=== PATIENT | female | born 1940 ===

== ENCOUNTER 2017-07-11 13:25 | Emergency (ER) | payer OTHER ==
[2017-07-11 13:25] VITALS: BMI 25.7
[2017-07-11 13:35] VITALS: RESP 20
--- NOTE | 2017-07-11 15:02 | C.PDOC ---
History Of Present Illness 76 y/o female c/o fever 103 F , headache, nasal congestion, dry cough, sore throat, and body aches which began last night.Denies abdominal pain, n/v/d. HPI: Influenza Time Seen by Provider: 07/11/17 14:16 Chief Complaint: ENT Problem History Per: Patient Exam Limitations: no limitations Onset/Duration Of Symptoms: Days Risk factors for flu complications: Yes: adult > 65 years Past Medical History Reviewed: Historical Data, Nursing Documentation, Vital Signs Vital Signs: Last Vital Signs Temp 97.6 F 07/11/17 13:32 Pulse 76 07/11/17 13:32 Resp 20 07/11/17 13:32 BP 146/83 07/11/17 13:32 Pulse Ox 98 07/11/17 13:32 - Medical History PMH: Arthritis, Asthma, Cardia Arrhythmia (occasional tachycardia last 2 yrs ago ), Gastritis, Gall Bladder Disease, HTN, Hypercholesterolemia, Peripheral Edema Surgical History: Cholecystectomy - [facility] Procedures CLOSED [NEEDLE] BIOPSY OF SALIVARY GLAND OR DUCT (04/07/14) Family History: States: No Known Family Hx - Social History Hx Tobacco Use: No Hx Alcohol Use: No Hx Substance Use: No - Immunization History Hx Tetanus Toxoid Vaccination: Yes Hx Influenza Vaccination: Yes Hx Pneumococcal Vaccination: Yes Review Of Systems Constitutional: Positive for: Fever, Malaise. Negative for: Chills ENT: Positive for: Throat Pain Respiratory: Positive for: Cough (dry cough) Gastrointestinal: Negative for: Nausea, Vomiting, Abdominal Pain, Diarrhea Neurological: Positive for: Headache Physical Exam - Physical Exam Appears: Non-toxic, Other (uncomfortable) Skin: Warm, Dry Head: Atraumatic, Normacephalic Eye(s): bilateral: Normal Inspection Ear(s): Bilateral: Normal Throat: Erythema (mildly erythematous), No Exudate, Other (submandibular nodes bilaterally, no tonsillar enlargement) Cardiovascular: Rhythm Regular, No Murmur Respiratory: No Decreased Breath Sounds, No Accessory Muscle Use, No Rales, No Rhonchi, No Wheezing Gastrointestinal/Abdominal: Soft, No Tenderness Neurological/Psych: Oriented x3, Normal Speech, Normal Motor, Normal Sensation Medical Decision Making Medical Decision Making: Plan: --Rapid Strep --Tamiflu PO --Tylenol PO - ECG O2 Sat by Pulse Oximetry: 98 (RA) Pulse Ox Interpretation: Normal Disposition Counseled Patient/Family Regarding: Studies Performed, Diagnosis, Need For Followup, Rx Given - Disposition Referrals: Antonio Longoria APN [Non-Staff] - Disposition: HOME/ ROUTINE Disposition Time: 15:27 Condition: STABLE Additional Instructions: Please take Tamiflu as prescribed. Tylenol for pain and fever every 4 hours if needed. Gargle with warm salty water or listerine. Drink increased fluids. Follow up with your doctor on Tu as scheduled. Return to ER for any worsening symptoms. Prescriptions: Acetaminophen [Tylenol 325mg tab] 650 mg PO Q4 #50 tab Oseltamivir [Tamiflu] 75 mg PO BID #9 cap Instructions: Flu, Adult (DC) Forms: [facility] (Kyrgyz), General Discharge Instructions - Clinical Impression Clinical Impression: Influenza-like illness - PA / DIRECTOR OF ASSESSMENT / Resident Statement MD/DO has reviewed & agrees with the documentation as recorded. - Scribe Statement The provider has reviewed the documentation as recorded by the Julia Loza Provider Attestation All medical record entries made by the Bashiriboj were at my direction and personally dictated by me. I have reviewed the chart and agree that the record accurately reflects my personal performance of the history, physical exam, medical decision making, and the department course for this patient. I have also personally directed, reviewed, and agree with the discharge instructions and disposition.
[2017-07-11 15:28] VITALS: BP 140/91; PULSE 84; TEMP 97
[2017-07-11 15:30] VITALS: O2SAT 98
== END 2017-07-11 15:46 | disposition home or self-care (01) ==
LOC: C.ER 13:25
DX: J11.1 Influenza due to unidentified influenza virus with other respiratory manifestations (principal)

== ENCOUNTER 2018-05-10 19:28 | Observation (INO) | payer OTHER ==
[2018-05-10 19:29] VITALS: BMI 25.7
--- NOTE | 2018-05-10 19:43 | C.PDOC ---
History Of Present Illness 77 year old female presents to the emergency department status-post trauma after her dog pulled her and she fell down 3 steps. Patient denies LOC and states that she remembers the event. Patient states that she sustained abrasions over the left cheekbone, and also complaints of pain to the left wrist. - HPI Time Seen by Provider: 05/10/18 19:43 Chief Complaint (Nursing): Trauma History Per: Patient History/Exam Limitations: no limitations Onset/Duration Of Symptoms: Hrs Injury Occurred (Timing): Hours Ago: Location Of Injury: Left: Wrist, Anterior: Face Severity: Moderate Pain Scale Rating Of: 4 Past Medical History Reviewed: Historical Data, Nursing Documentation, Vital Signs Vital Signs: Last Vital Signs Temp 98 F 05/10/18 19:33 Pulse 98 H 05/10/18 19:33 Resp 20 05/10/18 19:33 BP 164/98 H 05/10/18 19:33 Pulse Ox 98 05/10/18 19:33 - Medical History PMH: Arthritis, Asthma, Cardia Arrhythmia (occasional tachycardia last 2 yrs ago), Gastritis, Gall Bladder Disease, HTN, Hypercholesterolemia, Peripheral Edema Surgical History: Cholecystectomy - [facility] Procedures CLOSED [NEEDLE] BIOPSY OF SALIVARY GLAND OR DUCT (04/07/14) Family History: States: No Known Family Hx - Social History Hx Tobacco Use: No Hx Alcohol Use: No Hx Substance Use: No - Immunization History Hx Tetanus Toxoid Vaccination: Yes Hx Influenza Vaccination: Yes Hx Pneumococcal Vaccination: Yes Review Of Systems Constitutional: Negative for: Fever Gastrointestinal: Negative for: Nausea, Vomiting Musculoskeletal: Positive for: Hand Pain (left wrist) Skin: Positive for: Other (abrasion) Neurological: Negative for: Weakness, Numbness Physical Exam - Physical Exam Appears: Non-toxic, No Acute Distress Skin: Warm, Dry Head: Normacephalic, Abrasion (over the left maxillary sinus), No Other (crepitus) Eye(s): bilateral: Normal Inspection, PERRL, EOMI Ear(s): Bilateral: Normal Nose: Normal, No Tenderness, No Septal Hematoma Neck: Trachea Midline, Supple Chest: Symmetrical, No Tenderness Cardiovascular: Rhythm Regular, No Murmur Respiratory: No Rales, No Rhonchi, No Wheezing Extremity: Normal ROM (to all fingers ), Tenderness (tenderness to palpation to the left wrist), Capillary Refill (< 2 seconds), Swelling (to the left wrist) Pulses: Left Radial: Normal, Right Radial: Normal Neurological/Psych: Oriented x3 ED Course And Treatment - Laboratory Results Result Diagrams: 05/10/18 23:33 ECG: Interpreted By Me, Viewed By Me ECG Rhythm: Sinus Rhythm (93), 1st Degree HB, Nonspecific Changes O2 Sat by Pulse Oximetry: 98 (RA) Pulse Ox Interpretation: Normal - Radiology CXR: Interpreted by Me, Viewed By Me - Other Rad wrist X-Ray: Interpreted by Me, Viewed By Me Interpretation: comminuted distal radius and ulnar fracture Progress Note: Plan: CT Head. CT Orbits. Tylenol 975mg PO. XR Left Wrist. sugar tong splint applied. Placed call to dr pruett - orthopedics Disposition Discussed With Dr.: Eric Winters Comment: accepted the pt on his service and took over the care at 10:15 PM Doctor Will See Patient In The: Hospital Counseled Patient/Family Regarding: Studies Performed, Diagnosis - Disposition Disposition: HOSPITALIZED Disposition Time: 19:43 Condition: FAIR - Clinical Impression Clinical Impression: Fall, Fracture of wrist, Minor head injury, Facial contusion - Scribe Statement The provider has reviewed the documentation as recorded by the Scribe (Kwaku Amie) Provider Attestation: All medical record entries made by the Scribe were at my direction and personally dictated by me. I have reviewed the chart and agree that the record accurately reflects my personal performance of the history, physical exam, medical decision making, and the department course for this patient. I have also personally directed, reviewed, and agree with the discharge instructions and disposition. Decision To Admit - Pt Status Changed To: Hospital Disposition Of: Observation - . Bed Request Type: Telemetry Admitting Physician: Eric Winters Patient Diagnosis: Fall, Fracture of wrist, Minor head injury
[2018-05-10] MEDS ORDERED: Morphine 4 MG/ML VIAL ONE (23:15)
[2018-05-10 23:37] LABS: BASO # 0.1 K/uL (0.0-0.2); BASO % 1.1 % (0.0-2.0); EOS # 0.2 K/uL (0.0-0.7); EOS % 1.8 % (0.0-4.0); HEMOGLOBIN 13.5 g/dL (11.0-16.0); LYMPH # 2.6 K/uL (1.0-4.3); LYMPH % 30.3 % (20.0-40.0); MEAN CORPUSCULAR HEMOGLOBIN 32.9 pg (27.0-31.0); MEAN CORPUSCULAR HGB CONC 34.6 g/dL (33.0-37.0); MEAN PLATELET VOLUME 8.5 fL (7.2-11.7); MONO # 0.5 K/uL (0.0-0.8); MONO % 5.9 % (0.0-10.0); NEUT # 5.3 K/uL (1.8-7.0); NEUT % 60.9 % (50.0-75.0); NRBC % 0.1 % (0.0-2.0); RBC 4.09 Mil/uL (3.80-5.20); RED CELL DISTRIBUTION WIDTH 12.8 % (11.5-14.5); WHITE BLOOD COUNT 8.7 K/uL (4.8-10.8)
--- NOTE | 2018-05-10 23:42 | CP.PCM.HP ---
History of Present Illness - History of Present Illness History of Present Illness: 77 year old female presents to the emergency department status-post trauma after her dog pulled her and she fell down 3 steps. Patient denies LOC and states that she remembers the event. Patient states that she sustained abrasions over the left cheekbone, and also complaints of pain to the left wrist patient has a history of cardiac arrhythmia hypertension. The x-ray of the left wrist showed comminuted fracture of the radius and ulna spiral fracture on the radius there is also mild fracture of the left orbit with abnormal CT scan of the head of the frontal lobe. Present on Admission - Present on Admission Any Indicators Present on Admission: No Review of Systems - Review of Systems All systems: reviewed and no additional remarkable complaints except (pain in the left wrist and headache) Past Patient History - Infectious Disease Hx of Infectious Diseases: None - Past Medical History & Family History Past Medical History?: Yes - Past Social History Smoking Status: Never Smoked - CARDIAC Hx Cardia Arrhythmia: Yes (occasional tachycardia last 2 yrs ago) Hx Hypercholesterolemia: Yes Hx Hypertension: Yes Hx Peripheral Edema: Yes - PULMONARY Hx Asthma: Yes - NEUROLOGICAL Hx Neurological Disorder: Yes Hx Dizziness: Yes - HEENT Hx HEENT Problems: Yes Hx Cataracts: Yes (bilat iol) - ENDOCRINE/METABOLIC Hx Endocrine Disorders: No - HEMATOLOGICAL/ONCOLOGICAL Hx Blood Disorders: Yes Hx Shingles: Yes (3 yrs ago) - INTEGUMENTARY Hx Dermatological Problems: No - MUSCULOSKELETAL/RHEUMATOLOGICAL Hx Arthritis: Yes - GASTROINTESTINAL Hx Gall Bladder Disease: Yes Hx Gastritis: Yes - GENITOURINARY/GYNECOLOGICAL Hx Genitourinary Disorders: No - PSYCHIATRIC Hx Substance Use: No - SURGICAL HISTORY Hx Cholecystectomy: Yes - ANESTHESIA Hx Anesthesia: Yes Hx Anesthesia Reactions: No Hx Malignant Hyperthermia: No Meds Allergies/Adverse Reactions: Allergies Allergy/AdvReac Type Severity Reaction Status Date / Time aspirin Allergy Verified 05/10/18 19:38 Penicillins Allergy Verified 05/10/18 19:38 Physical Exam - Head Exam Additional comments: contusion in the left upper orbit - Eye Exam Eye Exam: EOMI, Normal appearance, PERRL Pupil Exam: NORMAL ACCOMODATION, PERRL - ENT Exam ENT Exam: Mucous Membranes Moist, Normal Exam - Neck Exam Neck exam: Positive for: Normal Inspection - Respiratory Exam Respiratory Exam: Clear to Auscultation Bilateral, NORMAL BREATHING PATTERN - Cardiovascular Exam Cardiovascular Exam: REGULAR RHYTHM - GI/Abdominal Exam GI & Abdominal Exam: Normal Bowel Sounds, Soft. absent: Tenderness - Extremities Exam Extremities exam: Positive for: normal inspection - Expanded Upper Extremities Exam Left Shoulder exam: absent: abrasion, crepitus, deformity, dislocation, ecchymosis, erythema, full ROM, laceration, swelling, tenderness, tenderness over AC joint, normal inspection Upper Arm exam: absent: abrasion, crepitus, deformity, dislocation, ecchymosis, erythema, full ROM, laceration, swelling, tenderness, normal inspection Forearm Wrist exam: abrasion, deformity, swelling, tenderness - Back Exam Back exam: absent: CVA tenderness (L), CVA tenderness (R) - Neurological Exam Neurological exam: Alert, CN II-XII Intact, Normal Gait, Oriented x3, Reflexes Normal - Psychiatric Exam Psychiatric exam: Normal Affect, Normal Mood Results - Vital Signs Recent Vital Signs: Last Vital Signs Temp 98.7 F 05/10/18 21:26 Pulse 93 H 05/10/18 22:25 Resp 18 05/10/18 22:25 BP 126/79 05/10/18 22:25 Pulse Ox 98 05/10/18 22:50 - Labs Result Diagrams: 05/10/18 23:33 05/10/18 23:33 Labs: Laboratory Results - last 24 hr 05/10/18 23:33 WBC 8.7 RBC 4.09 Hgb 13.5 Hct 38.9 MCV 95.0 MCH 32.9 H MCHC 34.6 RDW 12.8 Plt Count 185 MPV 8.5 Neut % (Auto) 60.9 Lymph % (Auto) 30.3 [place] % (Auto) 5.9 Eos % (Auto) 1.8 Baso % (Auto) 1.1 Neut # (Auto) 5.3 Lymph # (Auto) 2.6 [place] # (Auto) 0.5 Eos # (Auto) 0.2 Baso # (Auto) 0.1 Assessment & Plan (1) Closed fracture of left distal radius Status: Acute Comment: patient will be evaluated by orthopedic service and follow the recommendation patient will need some cardiac workup because there is no clear history of how she fell (2) Distal end of ulna fracture, closed Status: Acute (3) Facial contusion Status: Acute (4) Fall Status: Acute (5) Minor head injury Status: Acute (6) Asthma Status: Chronic (7) HTN (hypertension) Status: Chronic (8) Tachycardia Status: Acute
[2018-05-10 23:43] LABS: PROTHROMBIN TIME 11.2 SECONDS (9.7-12.2)
[2018-05-11 02:47] LABS: ALB/GLOB RATIO 1.4 (1.0-2.1); ALBUMIN 4.4 g/dL (3.5-5.0); ALT/SGPT 28 U/L (9-52); AST/SGOT 28 U/L (14-36); BLOOD UREA NITROGEN 20 mg/dL (7-17); CALCIUM 10.7 mg/dl (8.6-10.4); GFR NON-AFRICAN AMERICAN > 60
[2018-05-11 02:55] LABS: URINE BILIRUBIN NEGATIVE (NEGATIVE); URINE BLOOD 1+ (NEGATIVE); URINE CLARITY Clear (Clear); URINE COLOR YELLOW (YELLOW); URINE GLUCOSE (UA) NEGATIVE (Normal); URINE PROTEIN NEGATIVE (NEGATIVE); URINE UROBILINOGEN Normal mg/dL (0.2-1.0)
[2018-05-11 02:56] LABS: SQUAMOUS EPITHIAL 3 /hpf (0-5); URINE BACTERIA RARE (<OCC); URINE HYALINE CAST 0-2 /lpf (0-2); URINE LEUKOCYTE ESTERASE NEGATIVE Leu/uL (Negative)
[2018-05-11 06:33] LABS: CK-MB 1.88 ng/mL (0.0-3.38)
--- NOTE | 2018-05-11 08:22 | CP.PCM.CON ---
History of Present Illness - History of Present Illness History of Present Illness: Orthopedic consultation Dr. Burch 77F complains of left wrist and left side of head pain after fall when dog pulled her while walking dog last night. She is RHD. Denies numbness/tingling. Denies pain in her legs, right arm, neck, or back after the fall. The pain in her wrist is severe, and her wrist is deformed. Denies CP/SOB/dizziness. Denies any wrist pain prior to this fall. Review of Systems - Review of Systems All systems: reviewed and no additional remarkable complaints except - Constitutional Additional comments: no fever - Cardiovascular Cardiovascular: As Per HPI - Respiratory Respiratory: As Per HPI - Gastrointestinal Additional comments: denies n/v - Musculoskeletal Musculoskeletal: As Per HPI - Integumentary Additional comments: abrasions to hand - Neurological Neurological: As Per HPI - Hematologic/Lymphatic Hematologic: absent: As Per HPI, Easy Bleeding, Easy Bruising, Lymphadenopathy, Other Past Patient History - Infectious Disease Hx of Infectious Diseases: None - Past Medical History & Family History Past Medical History?: Yes Past Family History: Reviewed and not pertinent - Past Social History Smoking Status: Never Smoked - CARDIAC Hx Cardia Arrhythmia: Yes (occasional tachycardia last 2 yrs ago) Hx Hypercholesterolemia: Yes Hx Hypertension: Yes Hx Peripheral Edema: Yes - PULMONARY Hx Asthma: Yes - NEUROLOGICAL Hx Neurological Disorder: Yes Hx Dizziness: Yes - HEENT Hx HEENT Problems: Yes Hx Cataracts: Yes (bilat iol) - ENDOCRINE/METABOLIC Hx Endocrine Disorders: No - HEMATOLOGICAL/ONCOLOGICAL Hx Blood Disorders: Yes Hx Shingles: Yes (3 yrs ago) - INTEGUMENTARY Hx Dermatological Problems: No - MUSCULOSKELETAL/RHEUMATOLOGICAL Hx Arthritis: Yes - GASTROINTESTINAL Hx Gall Bladder Disease: Yes Hx Gastritis: Yes - GENITOURINARY/GYNECOLOGICAL Hx Genitourinary Disorders: No - PSYCHIATRIC Hx Substance Use: No - SURGICAL HISTORY Hx Cholecystectomy: Yes - ANESTHESIA Hx Anesthesia: Yes Hx Anesthesia Reactions: No Hx Malignant Hyperthermia: No Meds Allergies/Adverse Reactions: Allergies Allergy/AdvReac Type Severity Reaction Status Date / Time aspirin Allergy Verified 05/10/18 19:38 Penicillins Allergy Verified 05/10/18 19:38 - Medications Medications: Current Medications Ketorolac Tromethamine (Toradol) 30 mg IVP Q6 PRN PRN Reason: Pain, moderate (4-7) Last Admin: 05/11/18 02:38 Dose: 30 mg Physical Exam - Constitutional Appears: Well, No Acute Distress - Head Exam Additional comments: ecchymosis to left periorbital area - Eye Exam Eye Exam: Periorbital swelling, Periorbital tenderness - Neck Exam Neck exam: Positive for: Full Rom, Normal Inspection - Respiratory Exam Respiratory Exam: NORMAL BREATHING PATTERN - Cardiovascular Exam Additional comments: +radial/ulnar pulses - Expanded Upper Extremities Exam Left Shoulder exam: full ROM (NT), normal inspection Elbow exam: full ROM, normal inspection (NT) Forearm Wrist exam: deformity, swelling Neuro motor exam: finger 2-5 abduction intact, thumb abduction, thumb IP flexion intact, thumb opposition intact, wrist extension intact Neurosensory exam: 2-poit discrimination, median nerve intact, radial nerve intact Vascular exam: radial pulse, ulnar pulse - Back Exam Back exam: NORMAL INSPECTION Additional comments: NT - Neurological Exam Neurological exam: Alert, Oriented x3 - Psychiatric Exam Psychiatric exam: Normal Affect, Normal Mood - Skin Skin Exam: Dry, Intact, Warm Additional comments: left wrist skin intact, small abrasions to middle finger Results - Vital Signs Recent Vital Signs: Last Vital Signs Temp 98.1 F 05/11/18 07:07 Pulse 76 05/11/18 07:07 Resp 20 05/11/18 07:07 BP 122/73 05/11/18 07:07 Pulse Ox 94 L 05/11/18 07:07 - Labs Result Diagrams: 05/10/18 23:33 05/10/18 23:33 Labs: Laboratory Results - last 24 hr 05/10/18 05/10/18 05/10/18 23:33 23:33 23:33 WBC 8.7 RBC 4.09 Hgb 13.5 Hct 38.9 MCV 95.0 MCH 32.9 H MCHC 34.6 RDW 12.8 Plt Count 185 MPV 8.5 Neut % (Auto) 60.9 Lymph % (Auto) 30.3 [place] % (Auto) 5.9 Eos % (Auto) 1.8 Baso % (Auto) 1.1 Neut # (Auto) 5.3 Lymph # (Auto) 2.6 [place] # (Auto) 0.5 Eos # (Auto) 0.2 Baso # (Auto) 0.1 PT 11.2 INR 1.0 APTT 32 Sodium 135 Potassium 4.3 Chloride 101 Carbon Dioxide 25 Anion Gap 13 BUN 20 H Creatinine 0.8 Est GFR ( Amer) > 60 Est GFR (Non-Af Amer) > 60 Random Glucose 109 H Calcium 10.7 H Total Bilirubin 0.9 AST 28 ALT 28 Alkaline Phosphatase 112 Total Creatine Kinase 148 H CK-MB (Mass) 2.40 Troponin I < 0.0120 Total Protein 7.6 Albumin 4.4 Globulin 3.2 Albumin/Globulin Ratio 1.4 Urine Color Urine Clarity Urine pH Ur Specific [place] Urine Protein Urine Glucose (UA) Urine Ketones Urine Blood Urine Nitrate Urine Bilirubin Urine Urobilinogen Ur Leukocyte Esterase Urine WBC (Auto) Urine RBC (Auto) Ur Squamous Epith Cells Urine Bacteria Hyaline Casts 05/11/18 05/11/18 02:14 06:05 WBC RBC Hgb Hct MCV MCH MCHC RDW Plt Count MPV Neut % (Auto) Lymph % (Auto) [place] % (Auto) Eos % (Auto) Baso % (Auto) Neut # (Auto) Lymph # (Auto) [place] # (Auto) Eos # (Auto) Baso # (Auto) PT INR APTT Sodium Potassium Chloride Carbon Dioxide Anion Gap BUN Creatinine Est GFR ( Amer) Est GFR (Non-Af Amer) Random Glucose Calcium Total Bilirubin AST ALT Alkaline Phosphatase Total Creatine Kinase 121 CK-MB (Mass) 1.88 Troponin I < 0.0120 Total Protein Albumin Globulin Albumin/Globulin Ratio Urine Color Yellow Urine Clarity Clear Urine pH 6.0 Ur Specific [place] 1.011 Urine Protein Negative Urine Glucose (UA) Negative Urine Ketones Negative Urine Blood 1+ H Urine Nitrate Negative Urine Bilirubin Negative Urine Urobilinogen Normal Ur Leukocyte Esterase Negative Urine WBC (Auto) 1 Urine RBC (Auto) 4 H Ur Squamous Epith Cells 3 Urine Bacteria Rare Hyaline Casts 0-2 - Impressions Impression: Left wrist xrays: 3 views AP/Lat/oblique Shows intraarticular comminuted left distal radius fracture and comminuted distal ulnar fracture with significant shortening and ulnar deviation. CT scan reviewed: as above, osteopenia, fibrocystic changes to scaphoid, lunate, capitellum, fracture to lunate, ?fx to scaphoid, chondrocalcinosis, DJD, STS atient Name / ID : ARRON HCAMPION / [id number] Exam Date : 05/10/2018 20:13:04 ( Approved ) Study Comment : Sex / Age : F / 77Y Creator : Juliana Soto Dictator : Juliana Soto Herd Tester : Schedule Planning Manager : Juliana Soto Approver2 : Report Date : 05/11/2018 08:41:30 My Comment : Date of service: 05/10/2018 PROCEDURE: Left Wrist Radiographs. HISTORY: fall COMPARISON: None. FINDINGS: BONES: Comminuted distal radial metaphyseal to epiphyseal and distal radial primarily metaphyseal comminuted fractures present. Impaction the radial fracture with mainly radial sided apical angulation noted. Distal fracture fragment displaced towards the ulna. Ulnar fracture fragment is volarly displaced. JOINTS: Radiocarpal joint space appears narrowed cystic changes at the lunate and navicular noted. Navicular lunate spacing slightly increased in appearance Vague opacity either extensive triangular fibrocartilage complex calcification. Concomitant flake ossific fragments precise donor sites not known projecting over this region-another consideration. First carpal metacarpal joint arthrosis. SOFT TISSUES: Diffusely swollen OTHER FINDINGS: Vague opacity either extensive triangular fibrocartilage complex calcification. Concomitant flake ossific fragments precise donor sites not known projecting over this region-another consideration. IMPRESSION: Comminuted and displaced fracture fragments distal radius and ulna as above. Radial fracture with radiocarpal and radial ulnar joint extension. Other findings as above. Assessment & Plan (1) Closed fracture of left distal radius Assessment and Plan: closed reduction attempted, sugar tong splint applied, well padded, NVID pre and post reduction/splint application will follow up post reduction/splinting xrays elevation ice sling d/w Dr. Burch, agrees with above, indicated for ORIF of left wrist, will f/u p seema with Dr. Burch Imaging reviewed by Dr. Burch, unable to maintain reduction. Patient will need ORIF. Per Dr. Burch, patient can maintain splint at all times, elevate, sling, and follow up as outpatient with partner Dr. Rojas hand surgeon within 2-3 days call for appointment [phone]. No surgery to be done today, diet ordered. For ORIF when swelling decreased as well. Status: Acute (2) Distal end of ulna fracture, closed Status: Acute (3) Fracture of lunate, left wrist, closed Status: Acute Procedures Attestation:: I certify that I have explained the specified Operation(s) or Procedure(s), risks, benefits and reasonable alternatives to the Patient and/or other person responsible. The opportunity was given to ask questions and all questions answered - Orthopedic Fracture Reduction Fracture #1 Consent Obtained: verbal consent Time Out Performed: Yes Side: left Fracture Reduction Location: radius, ulna Technique: direct manipulation Post-Reduction Neuro Exam: intact Post-Reduction Vascular Exam: intact Splint Applied: Yes (sugar tong splint applied) Patient Tolerated Procedure: well - Orthopedic Splinting/Casting Injury #1 Side: left Upper Extremity Injury Location: wrist Upper Extremity Immobilizer: sugar tong splint (removed volar/dorsal splint applied by ER, elbow not immobilizer, not sugar tong as documented by ER. well padded sugar tong splint applied. )
--- NOTE | 2018-05-11 08:45 | RAD ---
Date of service: 05/10/2018 PROCEDURE: Left Wrist Radiographs. HISTORY: fall COMPARISON: None. FINDINGS: BONES: Comminuted distal radial metaphyseal to epiphyseal and distal radial primarily metaphyseal comminuted fractures present. Impaction the radial fracture with mainly radial sided apical angulation noted. Distal fracture fragment displaced towards the ulna. Ulnar fracture fragment is volarly displaced. JOINTS: Radiocarpal joint space appears narrowed cystic changes at the lunate and navicular noted. Navicular lunate spacing slightly increased in appearance Vague opacity either extensive triangular fibrocartilage complex calcification. Concomitant flake ossific fragments precise donor sites not known projecting over this region-another consideration. First carpal metacarpal joint arthrosis. SOFT TISSUES: Diffusely swollen OTHER FINDINGS: Vague opacity either extensive triangular fibrocartilage complex calcification. Concomitant flake ossific fragments precise donor sites not known projecting over this region-another consideration. IMPRESSION: Comminuted and displaced fracture fragments distal radius and ulna as above. Radial fracture with radiocarpal and radial ulnar joint extension. Other findings as above.
--- NOTE | 2018-05-11 08:47 | RAD ---
Date of service: 05/10/2018 HISTORY: SOB COMPARISON: None available. FINDINGS: LUNGS: Linear atelectasis or fibrosis in the bilateral lung bases however there is no alveolitis or patchy atelectasis appreciated. PLEURA: No significant pleural effusion identified, no pneumothorax apparent. CARDIOVASCULAR: No aortic atherosclerotic calcification present. Normal cardiac size. No pulmonary vascular congestion. OSSEOUS STRUCTURES: No significant abnormalities. VISUALIZED UPPER ABDOMEN: Normal. OTHER FINDINGS: None. IMPRESSION: Limited linear atelectasis or fibrosis bilateral bases with remaining lung felix clear. No pulmonary vascular congestion identified.
--- NOTE | 2018-05-11 09:36 | CT ---
Date of service: 05/10/2018 PROCEDURE: CT HEAD WITHOUT CONTRAST. HISTORY: fall COMPARISON: Unenhanced head CT 04/03/2014. TECHNIQUE: Axial computed tomography images were obtained through the head/brain without intravenous contrast. Radiation dose: Total exam DLP = 1125.71 mGy-cm. This CT exam was performed using one or more of the following dose reduction techniques: Automated exposure control, adjustment of the mA and/or kV according to patient size, and/or use of iterative reconstruction technique. FINDINGS: HEMORRHAGE: No intracranial hemorrhage. BRAIN: Good corticomedullary differentiation is seen. Proportional, minimal diffuse expansion of the ventriculosulcal and cisternal spaces is appreciated with minimal white matter lucency compatible with diffuse cerebral atrophy and chronic microangiopathy, once again. No suspicious extra-axial fluid collection is identified and the midline brain anatomy appears grossly nonfocal as imaged. There is no mass effect throughout. VENTRICLES: Unremarkable. No hydrocephalus. CALVARIUM: Unremarkable. PARANASAL SINUSES: Unremarkable as visualized. No significant inflammatory changes. MASTOID AIR CELLS: Unremarkable as visualized. No inflammatory changes. OTHER FINDINGS: None. IMPRESSION: Stable very limited age-related neuro degenerative changes are reiterated as compared prior CT 04/03/2014. No definite acute intracranial findings by standard CT criteria. Follow-up CT or MRI are available if clinically warranted. Concordant preliminary report from [facility], 05/10/2018 8:56 p.m..
--- NOTE | 2018-05-11 09:46 | CT ---
Date of service: 05/10/2018 PROCEDURE: CT MAXILLOFACIAL BONES WITHOUT CONTRAST HISTORY: fall COMPARISON: None available. TECHNIQUE: Contiguous axial CT images of the maxillofacial bones were obtained. Coronal and sagittal reformats were generated. Radiation dose: Total exam DLP = 779.57 mGy-cm. This CT exam was performed using one or more of the following dose reduction techniques: Automated exposure control, adjustment of the mA and/or kV according to patient size, and/or use of iterative reconstruction technique. FINDINGS: NASAL BONES: Unremarkable. ORBITS: Limited lateral left periorbital soft tissue edema with the orbits otherwise intact and unremarkable. No fracture identified. PARANASAL SINUSES/ MASTOIDS: Limited mucosal inflammatory changes seen at the nondependent left maxilla including at the maxillary ostium. MAXILLA: No fracture identified however moderate soft tissue edema is seen in the premalar soft tissue/cheek without fluid collection evident. No emphysema soft tissue changes. MANDIBLE/ TEMPOROMANDIBULAR JOINTS: Unremarkable. SKULL BASE: Unremarkable. TEMPORAL BONES: Middle ears and mastoid grossly unremarkable. OTHER FINDINGS: None. IMPRESSION: 1. No fracture destructive bony lesions appreciated throughout the facial bones. 2. Very mild lateral periorbital soft tissue edema with the orbits intact and unremarkable limiting postseptal tissues. 3. Oevo-bj-wbtprmyn left cheek soft tissue edema without underlying fracture appreciable. Concordant preliminary report from [facility], 05/10/2018, 8:59 p.m..
--- NOTE | 2018-05-11 10:40 | RAD ---
Date of service: 05/11/2018 PROCEDURE: Left Wrist Radiographs. HISTORY: repeat in splint COMPARISON: 05/10/2018 FINDINGS: BONES: The comminuted and displaced distal radial and ulnar fractures intra-articular extension are similar in their position in overall appearance. Currently examination is made through casting material obscuring bony detail. JOINTS: No dislocation. Radiocarpal and 1st metacarpal joint arthrosis SOFT TISSUES: Altered density calcification with or without flake fracture fragments projects over the fibrocartilage complex. OTHER FINDINGS: None. IMPRESSION: Casting/immobilization of the previously referenced comminuted and displaced radial and ulnar fractures with prior intra-articular involvement noted. No change in position appreciated.
--- NOTE | 2018-05-11 11:09 | CT ---
CT left hand and wrist HISTORY: Injury. Comparison: None available. Technique: Multiple contiguous axial images were performed through the left hand and wrist without the use of intravenous contrast. Subsequently, sagittal and coronal reformatted images were obtained. This CT exam was performed using one or more of the following dose reduction techniques: Automated exposure control, adjustment of the mA and/or kV according to patient size, and/or use of iterative reconstruction technique. Findings: Please note given the large field of view, evaluation for osseous injury particularly at the level of the carpal bones is limited. Comminuted, distracted, angulated fracture deformities of the distal radius with intra-articular extension. Prominent comminuted fracture fragments are seen at both the volar and dorsal aspect of the distal radius for example a prominent volar sided fragment measures up to 1.4 centimeters. Comminuted and angulated distal ulnar fracture with dorsal sided distraction of the distal fracture fragment and smaller comminuted fracture fragments surrounding the fracture site. Extensive chondrocalcinosis at the level of proximal and mid carpal rows, markedly limit evaluation for fracture deformity at this level. Extensive large subchondral cyst formation and or intraosseous geode formation are noted within the carpal bones including the scaphoid, lunate, triquetrum, trapezoid, and capitate bones. In addition, there appears to be some cortical irregularity as demonstrated on series 601, image 59 at the dorsal aspect of the lunate bone concerning for possible osseous injury. This would be better delineated with MRI if clinically indicated. In addition, there is a curvilinear lucency seen at the dorsal aspect of the scaphoid bone on series 601, image 51 which may represent a prominent vascular groove extending to a subchondral cyst and or subtle osseous injury. Again correlation with MRI may be helpful if clinically indicated. Subluxation at the level of the 1st carpometacarpal joint space with degenerative changes. Some chondrocalcinosis noted at the volar aspect of the trapezoid bone mimics osseous injury. Diastasis of the scapholunate interval which may represent developing SLAC wrist. Chondrocalcinosis at the dorsal aspect of the triquetrum bone, mimics osseous injury. Negative ulnar variance. Impression: Please note given the large field of view, evaluation for osseous injury particularly at the level of the carpal bones is limited. 1. Comminuted, distracted, angulated fracture deformities of the distal radius with intra-articular extension. Prominent comminuted fracture fragments are seen at both the volar and dorsal aspect of the distal radius for example a prominent volar sided fragment measures up to 1.4 centimeters. 2. Comminuted and angulated distal ulnar fracture with dorsal sided distraction of the distal fracture fragment and smaller comminuted fracture fragments surrounding the fracture site. 3. Extensive chondrocalcinosis at the level of proximal and mid carpal rows, markedly limit evaluation for fracture deformity at this level. 4. Extensive large subchondral cyst formation and or intraosseous geode formation are noted within the carpal bones including the scaphoid, lunate, triquetrum, trapezoid, and capitate bones. 5. In addition, there appears to be some cortical irregularity as demonstrated on series 601, image 59 at the dorsal aspect of the lunate bone concerning for possible osseous injury. This would be better delineated with MRI if clinically indicated. 6. In addition, there is a curvilinear lucency seen at the dorsal aspect of the scaphoid bone on series 601, image 51 which may represent a prominent vascular groove extending to a subchondral cyst and or subtle osseous injury. Again correlation with MRI may be helpful if clinically indicated. 7. Subluxation at the level of the 1st carpometacarpal joint space with degenerative changes. 8. Some chondrocalcinosis noted at the volar aspect of the trapezoid bone mimics osseous injury. 9. Diastasis of the scapholunate interval which may represent developing SLAC wrist. 10. Chondrocalcinosis at the dorsal aspect of the triquetrum bone, mimics osseous injury. 11. Negative ulnar variance. A preliminary report was generated at 3:02 a.m. on 05/11/[address] Arlin Contreras from [facility].
[2018-05-11] MEDS ORDERED: Iodixanol 320 MG/ML 100 ML BOTTLE IV ONE (11:38)
--- NOTE | 2018-05-11 12:47 | CT ---
Date of service: 05/11/2018 PROCEDURE: CT HEAD WITH AND WITHOUT CONTRAST HISTORY: fall COMPARISON: None available. TECHNIQUE: CT examination was the performed through the head using serial axial sections prior to and following intravenous contrast administration. Reformatted dataset provided on postcontrast enhanced imaging. Contrast dose: Visipaque 320, 100 cc Radiation dose: Total exam DLP = 2031.61 mGy-cm. This CT exam was performed using one or more of the following dose reduction techniques: Automated exposure control, adjustment of the mA and/or kV according to patient size, and/or use of iterative reconstruction technique. FINDINGS: HEMORRHAGE: No intracranial hemorrhage. BRAIN: Limited pattern diffuse cerebral atrophy chronic microangiopathy is reiterated throughout the cerebrum with no mass effect identified in the interval or parenchymal edema appreciated. Sulci and cisterns remain unremarkable as well as midline brain anatomy. Following intravenous venous contrast administration, there is no abnormal intracranial enhancement appreciate including intra and extra-axial spaces. VENTRICLES: Unremarkable. No hydrocephalus. CALVARIUM: No destructive bony lesion or displaced fracture identified including through the skullbase. SINUSES: Unremarkable as visualized. No significant inflammatory changes. MASTOID AIR CELLS: Unremarkable as visualized. No mastoid effusion. OTHER FINDINGS: None. IMPRESSION: Stable limited age-related neuro degenerative findings as discussed above with no abnormal intracranial enhancement appreciable. Once again, no fracture identified.
[2018-05-11 15:59] LABS: CK-MB 1.79 ng/mL (0.0-3.38)
[2018-05-11] MEDS ORDERED: HYDROXYZINE PAMOATE PO PRN (17:03)
[2018-05-11 19:27] VITALS: RESP 20
--- NOTE | 2018-05-12 05:47 | CARD ---
APPROVED REPORT Date of service: 05/10/2018 EKG Measurement Heart [id number] HI [id number] <Conclusion> Sinus rhythm with 1st degree AV block Low voltage QRS Cannot rule out Anterior infarct, age undetermined Abnormal ECG
[2018-05-12] MEDS ORDERED: Ergocalciferol 50,000 Intl Units Cap PO SCH (10:00)
[2018-05-12] MEDS: Pantoprazole 40 mg EC Tab PO SCH (10:28)
--- NOTE | 2018-05-12 11:47 | CP.PCM.PN ---
Subjective - Date & Time of Evaluation Date of Evaluation: 05/12/18 Time of Evaluation: 11:46 - Subjective Subjective: Patient has moderate amount of pain After open reduction x-ray shows no change from the previous one CAT scan of the head is still pending Awaiting orthopedic input. Objective - Vital Signs/Intake and Output Vital Signs (last 24 hours): Temp Pulse Resp BP Pulse Ox 98.4 F 98 H 20 108/66 95 05/12/18 07:48 05/12/18 10:27 05/12/18 07:48 05/12/18 10:27 05/12/18 07:48 - Medications Medications: Current Medications Ergocalciferol (Drisdol 50,000 Intl Units Cap) 1 cap PO QWK [facility] Last Admin: 05/12/18 10:28 Dose: 1 cap Gabapentin (Neurontin) 300 mg PO BID [facility] Last Admin: 05/12/18 10:28 Dose: 300 mg Hydrochlorothiazide (Microzide) 12.5 mg PO DAILY [facility] Last Admin: 05/12/18 10:28 Dose: 12.5 mg Ketorolac Tromethamine (Toradol) 30 mg IVP Q6 PRN PRN Reason: Pain, moderate (4-7) Last Admin: 05/12/18 06:17 Dose: 30 mg Losartan Potassium (Cozaar) 100 mg PO DAILY [facility] Last Admin: 05/12/18 10:28 Dose: 100 mg Montelukast Sodium (Singulair) 10 mg PO HS [facility] Last Admin: 05/11/18 22:28 Dose: Not Given Pantoprazole Sodium (Protonix Ec Tab) 40 mg PO DAILY [facility] Last Admin: 05/12/18 10:28 Dose: 40 mg - Labs Labs: 05/10/18 23:33 05/10/18 23:33 PT 11.2 SECONDS (9.7-12.2) 05/10/18 23:33 INR 1.0 05/10/18 23:33 APTT 32 SECONDS (21-34) 05/10/18 23:33 Assessment and Plan (1) Closed fracture of left distal radius Status: Acute (2) Distal end of ulna fracture, closed Status: Acute (3) Facial contusion Status: Acute (4) Fall Status: Acute (5) Minor head injury Status: Acute (6) Asthma Status: Chronic (7) HTN (hypertension) Status: Chronic (8) Tachycardia Status: Acute
[2018-05-12 12:03] LABS: BASO % 0.6 % (0.0-2.0); EOS # 0.1 K/uL (0.0-0.7); EOS % 1.7 % (0.0-4.0); HEMOGLOBIN 12.7 g/dL (11.0-16.0); LYMPH # 2.2 K/uL (1.0-4.3); LYMPH % 28.1 % (20.0-40.0); MEAN CELL VOLUME 94.7 fL (81.0-99.0); MEAN CORPUSCULAR HEMOGLOBIN 32.6 pg (27.0-31.0); MEAN CORPUSCULAR HGB CONC 34.5 g/dL (33.0-37.0); MEAN PLATELET VOLUME 8.7 fL (7.2-11.7); MONO # 0.5 K/uL (0.0-0.8); MONO % 6.9 % (0.0-10.0); NEUT % 62.7 % (50.0-75.0); RBC 3.89 Mil/uL (3.80-5.20); WHITE BLOOD COUNT 7.9 K/uL (4.8-10.8)
[2018-05-12 12:20] LABS: ALB/GLOB RATIO 1.4 (1.0-2.1); ALBUMIN 4.1 g/dL (3.5-5.0); ALT/SGPT 14 U/L (9-52); AST/SGOT 21 U/L (14-36); BLOOD UREA NITROGEN 26 mg/dL (7-17); CALCIUM 10.6 mg/dl (8.6-10.4); GFR NON-AFRICAN AMERICAN > 60
--- NOTE | 2018-05-12 15:13 | CP.PCM.PN ---
Subjective - Date & Time of Evaluation Date of Evaluation: 05/12/18 Time of Evaluation: 15:11 - Subjective Subjective: Patient states she is comfortable right now. She says she has a lot of pain but the medication controls it. Denies numbness/tingling. Just returned from echo Objective - Vital Signs/Intake and Output Vital Signs (last 24 hours): Temp Pulse Resp BP Pulse Ox 98.4 F 98 H 20 108/66 95 05/12/18 07:48 05/12/18 10:27 05/12/18 07:48 05/12/18 10:27 05/12/18 07:48 - Medications Medications: Current Medications Ergocalciferol (Drisdol 50,000 Intl Units Cap) 1 cap PO QWK [facility] Last Admin: 05/12/18 10:28 Dose: 1 cap Gabapentin (Neurontin) 300 mg PO BID [facility] Last Admin: 05/12/18 10:28 Dose: 300 mg Hydrochlorothiazide (Microzide) 12.5 mg PO DAILY [facility] Last Admin: 05/12/18 10:28 Dose: 12.5 mg Ketorolac Tromethamine (Toradol) 30 mg IVP Q6 PRN PRN Reason: Pain, moderate (4-7) Last Admin: 05/12/18 06:17 Dose: 30 mg Losartan Potassium (Cozaar) 100 mg PO DAILY [facility] Last Admin: 05/12/18 10:28 Dose: 100 mg Montelukast Sodium (Singulair) 10 mg PO HS [facility] Last Admin: 05/11/18 22:28 Dose: Not Given Pantoprazole Sodium (Protonix Ec Tab) 40 mg PO DAILY [facility] Last Admin: 05/12/18 10:28 Dose: 40 mg - Labs Labs: 05/12/18 11:36 05/12/18 11:36 PT 11.2 SECONDS (9.7-12.2) 05/10/18 23:33 INR 1.0 05/10/18 23:33 APTT 32 SECONDS (21-34) 05/10/18 23:33 - Extremities Exam Additional comments: Left hand elevated, sugar tong splint intact, sensation itnact to med/ulnar/rad nerve distrib, +ROM fingers/thumb flex/ext/add/abd, swelling to fingers improved Assessment and Plan (1) Closed fracture of left distal radius Assessment & Plan: keep splint dry/intact elevation ice sling d/w Dr. Burch, agrees with above, indicated for ORIF of left wrist, will f/u plan with Dr. Burch's partner Dr. Rojas (hand specialist) as outpt to be scheduled. Patient o follow up in office on Sunday 05/14 call for appointment ortho stable for d/c d/w Dr. Rojas, agrees with above. Status: Acute (2) Distal end of ulna fracture, closed Status: Acute (3) Fracture of lunate, left wrist, closed Status: Acute
--- NOTE | 2018-05-12 16:23 | CARD ---
APPROVED REPORT Date of service: 05/12/2018 EXAM: Two-dimensional and M-mode echocardiogram with Doppler and color Doppler. Other Information Quality : Rhythm : Tachycardia INDICATION Abnormal EKG/Arrhythmia Dizziness and Vertigo Peripheral Edema RISK FACTORS Hypertension Hyperlipidemia 2D DIMENSIONS IVSd1.0 (0.7-1.1cm)Aortic Root (2D)2.8 (2.0-3.7cm) LVDd3.6 (3.9-5.9cm)PWd1.0 (0.7-1.1cm) LA Cojanh16 (18-58mL)LVDs2.2 (2.5-4.0cm) FS (%) 39.1 %LVEF (%)70.5 (>50%) LVEF (Crow's)65 %IVC0.00 cm M-Mode DIMENSIONS Left Atrium (MM)3.87 (2.5-4.0cm)IVSd0.85 (0.7-1.1cm) Aortic Root3.31 (2.2-3.7cm)LVDd4.23 (4.0-5.6cm) Aortic Cusp Exc.1.82 (1.5-2.0cm)PWd0.68 (0.7-1.1cm) FS (%) 42 %LVDs2.47 (2.0-3.8cm) TAPSE13.67 cmLVEF (%)68 (>50%) Mitral Valve MV E Zwsnipvq20.9cm/sMV A Lhudjsyd89.9cm/sE/A ratio2.4 TDI Lateral E' Peak V10.42cm/sMedial E' Peak V5.58cm/sE/Lateral E'8.8 E/Medial E'16.5 Tricuspid Valve TR Peak Rxdjexym476yr/sTR Peak Gr.85fsJkLRBL66moVy LEFT VENTRICLE The left ventricle is normal size. There is borderline concentric left ventricular hypertrophy. The left ventricular function is normal. The left ventricular ejection fraction is within the normal range. There is normal LV segmental wall motion. Transmitral Doppler flow pattern is Grade I-abnormal relaxation pattern. RIGHT VENTRICLE The right ventricle is normal size. There is normal right ventricular wall thickness. The right ventricular systolic function is normal. ATRIA The left atrium size is normal. The right atrium size is normal. AORTIC VALVE The aortic valve is normal in structure. No aortic regurgitation is present. There is no aortic valvular stenosis. MITRAL VALVE The mitral valve is mildly thickened. There is no evidence of mitral valve prolapse. There is no mitral valve stenosis. There is no mitral valve regurgitation noted. TRICUSPID VALVE The tricuspid valve is normal in structure. There is mild pulmonary hypertension. PULMONIC VALVE There is trace pulmonic valvular regurgitation. GREAT VESSELS The aortic root is normal in size. The IVC is normal in size and collapses >50% with inspiration. PERICARDIAL EFFUSION There is no pericardial effusion. <Conclusion> There is borderline concentric left ventricular hypertrophy. The left ventricular function is normal. The left ventricular ejection fraction is within the normal range. There is normal LV segmental wall motion. Transmitral Doppler flow pattern is Grade I-abnormal relaxation pattern. There is mild pulmonary hypertension.
--- NOTE | 2018-05-12 17:02 | CP.PCM.PN ---
Subjective - Date & Time of Evaluation Date of Evaluation: 05/12/18 Time of Evaluation: 17:00 - Subjective Subjective: PATIENT SEEN AND EXAMINED AT THE BEDSIDE Objective - Vital Signs/Intake and Output Vital Signs (last 24 hours): Temp Pulse Resp BP Pulse Ox 97.6 F 79 20 108/71 97 05/12/18 15:00 05/12/18 16:30 05/12/18 15:00 05/12/18 15:00 05/12/18 15:00 - Medications Medications: Current Medications Ergocalciferol (Drisdol 50,000 Intl Units Cap) 1 cap PO QWK [facility] Last Admin: 05/12/18 10:28 Dose: 1 cap Gabapentin (Neurontin) 300 mg PO BID [facility] Last Admin: 05/12/18 10:28 Dose: 300 mg Hydrochlorothiazide (Microzide) 12.5 mg PO DAILY [facility] Last Admin: 05/12/18 10:28 Dose: 12.5 mg Ketorolac Tromethamine (Toradol) 30 mg IVP Q6 PRN PRN Reason: Pain, moderate (4-7) Last Admin: 05/12/18 06:17 Dose: 30 mg Losartan Potassium (Cozaar) 100 mg PO DAILY [facility] Last Admin: 05/12/18 10:28 Dose: 100 mg Montelukast Sodium (Singulair) 10 mg PO HS [facility] Last Admin: 05/11/18 22:28 Dose: Not Given Pantoprazole Sodium (Protonix Ec Tab) 40 mg PO DAILY [facility] Last Admin: 05/12/18 10:28 Dose: 40 mg - Labs Labs: 05/12/18 11:36 05/12/18 11:36 PT 11.2 SECONDS (9.7-12.2) 05/10/18 23:33 INR 1.0 05/10/18 23:33 APTT 32 SECONDS (21-34) 05/10/18 23:33 Assessment and Plan - Assessment and Plan (Free Text) Assessment: FOLLOW UP WITH DR GALLARDO IN HID OFFICE -----CALL FOR APPOINTEMNT FOLLOW UP WITH DR HENRIQUEZ IN HIS OFFICE ON THURSDAY ADDRESS ORIF of left wrist AT YOUR VISIT CONTINUE HOME MEDICATION TORADOL 10 MG PO Q6H FOR PAIN FOR 3 DAYS keep splint dry/intact elevation ice sling Patient o follow up in office on Sunday 05/14 call for appointment ACTIVITY TOLERATED CALL DR GALLARDO OR GO TO THE EMERGENCY ROOM IF SYMPTOM RETURN OR WORSENING
[2018-05-13 08:41] VITALS: TEMP 98.5; O2SAT 97
[2018-05-13 09:18] VITALS: BP 137/82; PULSE 82
[2018-05-13] MEDS: Pantoprazole 40 mg EC Tab PO SCH (09:18)
--- NOTE | 2018-05-13 11:32 | CP.PCM.DIS ---
Provider - Provider Date of Admission: 05/10/18 22:14 Attending physician: Eric Winters MD Consults: 05/11/18 00:55 Orthopedic Consult Routine Comment: comminuted distal radial/ulna fracture Consulting Provider: Hardik Burch Consulting Physician: Hardik Burch Reason for Consult: comminuted distal radial/ulna fracture Time Spent in preparation of Discharge (in minutes): 30 Diagnosis - Discharge Diagnosis (1) Closed fracture of left distal radius Status: Acute (2) Distal end of ulna fracture, closed Status: Acute (3) Facial contusion Status: Acute (4) Fall Status: Acute (5) Minor head injury Status: Acute (6) Asthma Status: Chronic (7) HTN (hypertension) Status: Chronic (8) Tachycardia Status: Acute Hospital Course - Lab Results Lab Results: Most Recent Lab Values WBC 7.9 K/uL (4.8-10.8) 05/12/18 11:36 RBC 3.89 Mil/uL (3.80-5.20) 05/12/18 11:36 Hgb 12.7 g/dL (11.0-16.0) 05/12/18 11:36 Hct 36.8 % (34.0-47.0) 05/12/18 11:36 MCV 94.7 fL (81.0-99.0) 05/12/18 11:36 MCH 32.6 pg (27.0-31.0) H 05/12/18 11:36 MCHC 34.5 g/dL (33.0-37.0) 05/12/18 11:36 RDW 13.0 % (11.5-14.5) 05/12/18 11:36 Plt Count 174 K/uL (130-400) 05/12/18 11:36 MPV 8.7 fL (7.2-11.7) 05/12/18 11:36 Neut % (Auto) 62.7 % (50.0-75.0) 05/12/18 11:36 Lymph % (Auto) 28.1 % (20.0-40.0) 05/12/18 11:36 [place] % (Auto) 6.9 % (0.0-10.0) 05/12/18 11:36 Eos % (Auto) 1.7 % (0.0-4.0) 05/12/18 11:36 Baso % (Auto) 0.6 % (0.0-2.0) 05/12/18 11:36 Neut # (Auto) 5.0 K/uL (1.8-7.0) 05/12/18 11:36 Lymph # (Auto) 2.2 K/uL (1.0-4.3) 05/12/18 11:36 [place] # (Auto) 0.5 K/uL (0.0-0.8) 05/12/18 11:36 Eos # (Auto) 0.1 K/uL (0.0-0.7) 05/12/18 11:36 Baso # (Auto) 0.0 K/uL (0.0-0.2) 05/12/18 11:36 PT 11.2 SECONDS (9.7-12.2) 05/10/18 23:33 INR 1.0 05/10/18 23:33 APTT 32 SECONDS (21-34) 05/10/18 23:33 Sodium 135 mmol/L (132-148) 05/12/18 11:36 Potassium 4.0 mmol/L (3.6-5.2) 05/12/18 11:36 Chloride 103 mmol/L (98-107) 05/12/18 11:36 Carbon Dioxide 26 mmol/L (22-30) 05/12/18 11:36 Anion Gap 10 (10-20) 05/12/18 11:36 BUN 26 mg/dL (7-17) H 05/12/18 11:36 Creatinine 0.9 mg/dL (0.7-1.2) 05/12/18 11:36 Est GFR ( Amer) > 60 05/12/18 11:36 Est GFR (Non-Af Amer) > 60 05/12/18 11:36 Random Glucose 113 mg/dL (65-105) H 05/12/18 11:36 Calcium 10.6 mg/dl (8.6-10.4) H 05/12/18 11:36 Total Bilirubin 1.5 mg/dL (0.2-1.3) H 05/12/18 11:36 AST 21 U/L (14-36) 05/12/18 11:36 ALT 14 U/L (9-52) 05/12/18 11:36 Alkaline Phosphatase 76 U/L (38-126) 05/12/18 11:36 Total Creatine Kinase 125 U/L (30-135) 05/11/18 15:23 CK-MB (Mass) 1.79 ng/mL (0.0-3.38) 05/11/18 15:23 Troponin I < 0.0120 ng/mL (0.00-0.120) 05/11/18 15:23 Total Protein 7.0 g/dL (6.3-8.3) 05/12/18 11:36 Albumin 4.1 g/dL (3.5-5.0) 05/12/18 11:36 Globulin 2.9 gm/dL (2.2-3.9) 05/12/18 11:36 Albumin/Globulin Ratio 1.4 (1.0-2.1) 05/12/18 11:36 Urine Color Yellow (YELLOW) 05/11/18 02:14 Urine Clarity Clear (Clear) 05/11/18 02:14 Urine pH 6.0 (5.0-8.0) 05/11/18 02:14 Ur Specific [place] 1.011 (1.003-1.030) 05/11/18 02:14 Urine Protein Negative mg/dL (NEGATIVE) 05/11/18 02:14 Urine Glucose (UA) Negative mg/dL (Normal) 05/11/18 02:14 Urine Ketones Negative mg/dL (NEGATIVE) 05/11/18 02:14 Urine Blood 1+ (NEGATIVE) H 05/11/18 02:14 Urine Nitrate Negative (NEGATIVE) 05/11/18 02:14 Urine Bilirubin Negative (NEGATIVE) 05/11/18 02:14 Urine Urobilinogen Normal mg/dL (0.2-1.0) 05/11/18 02:14 Ur Leukocyte Esterase Negative [place]/uL (Negative) 05/11/18 02:14 Urine WBC (Auto) 1 /hpf (0-5) 05/11/18 02:14 Urine RBC (Auto) 4 /hpf (0-3) H 05/11/18 02:14 Ur Squamous Epith Cells 3 /hpf (0-5) 05/11/18 02:14 Urine Bacteria Rare (<OCC) 05/11/18 02:14 Hyaline Casts 0-2 /lpf (0-2) 05/11/18 02:14 - Hospital Course Hospital Course: 77 year old female presents to the emergency department status-post trauma after her dog pulled her and she fell down 3 steps. Patient denies LOC and states that she remembers the event. Patient states that she sustained abrasions over the left cheekbone, and also complaints of pain to the left wrist patient has a history of cardiac arrhythmia hypertension. The x-ray of the left wrist showed comminuted fracture of the radius and ulna spiral fracture on the radius there is also mild fracture of the left orbit with abnormal CT scan of the head of the frontal lobe Patient cardiac workup was negative. Closed reduction was done x-ray did not show any much improvement. As per the orthopedic service patient can be discharged and will follow outpatient for readmission for ORIF. Currently patient is stable will discharge and follow with orthopedic service Discharge Plan - Discharge Medications Prescriptions: Ketorolac Tromethamine [Toradol] 10 mg PO Q6H #12 tab - Follow Up Plan Condition: FAIR Disposition: HOME/ ROUTINE Instructions: Heart Healthy Diet, Preventing Falls in the Older Adult, Forearm Fracture (DC), Wrist Fracture (DC), Radius Fracture (DC), Tromethamine Additional Instructions: FOLLOW UP WITH DR WINTERS IN HID OFFICE -----CALL FOR APPOINTEMNT FOLLOW UP WITH DR BURCH IN HIS OFFICE ON THURSDAY ADDRESS ORIF of left wrist AT YOUR VISIT CONTINUE HOME MEDICATION TORADOL 10 MG PO Q6H FOR PAIN FOR 3 DAYS keep splint dry/intact elevation ice sling Patient o follow up in office on Sunday 05/14 call for appointment ACTIVITY TOLERATED CALL DR WINTERS OR GO TO THE EMERGENCY ROOM IF SYMPTOM RETURN OR WORSENING Referrals: Hardik Burch MD [Staff Provider] - Eric Winters MD [Staff Provider] -
== END 2018-05-13 10:30 | disposition home or self-care (01) ==
LOC: C.ER 19:28 → C.9E 22:14 → C.5S 05-11 18:06
PROVIDERS: ADMIT Internal Medicine Cardiovascular Disease; ATTEND Internal Medicine Cardiovascular Disease
DX: S02.82XA Fracture of other specified skull and facial bones, left side, initial encounter for closed fracture (principal); S52.502A Unspecified fracture of the lower end of left radius, initial encounter for closed fracture; S52.602A Unspecified fracture of lower end of left ulna, initial encounter for closed fracture; S62.002A Unspecified fracture of navicular [scaphoid] bone of left wrist, initial encounter for closed fracture; W10.9XXA Fall (on) (from) unspecified stairs and steps, initial encounter; I10 Essential (primary) hypertension; J45.909 Unspecified asthma, uncomplicated; M11.232 Other chondrocalcinosis, left wrist; S00.83XA Contusion of other part of head, initial encounter; R00.0 Tachycardia, unspecified
CPT/HCPCS: 36415; 70450; 70470; 70480; 71045; 73110; 73200; 80053; 81001; 82550; 82553; 84484; 85025; 85610; 85730; 93005; 93306; 96374; 97110; 97116; 97162; 97166; 97530; 97535; 99285; G0378; G8978; G8979; G8987; G8988; J1885; J2270; Q9967